=== PATIENT | female | born 1950 | race Caucasian/White ===

== ENCOUNTER 2018-03-05 05:59 | Inpatient (IN) ==
[2018-03-05] MEDS ORDERED: Thrombin Topical 20,000 UNIT Spray Kit TOPICAL ONE (06:36)
[2018-03-05] MEDS ORDERED: Heparin 10,000 UNITS/10 ML Vial (for IV use) ONE (06:36)
[2018-03-05] MEDS ORDERED: Protamine Sulfate Inj 50 MG/5 ML Vial ONE (06:36)
[2018-03-05] MEDS ORDERED: Heparin/NS PF Inj 500 ML ONE (06:36)
[2018-03-05] MEDS ORDERED: ceFAZolin 2 GM Premix Inj 0 GM/0 ML PIGGYBACK IV.SIG ONE (06:37)
--- NOTE | 2018-03-05 07:02 | P.PNVS ---
- Pre-operative Note Planned Procedure: ABF Interval History: Pt has been feeling well. No changes in health that would preclude surgery. Stopped smoking. Labs: Hct 38 plt 243 INR 1.0 cr 0.8 Blood: T&S Imaging: CTA reviewed Orders: NPO Ancef 1g IV OCTOR Post-operative Destination: [facility] Operative site marked: No Consent: Informed consent has been obtained from Christie Alan. I have explained the procedure in detail and discussed the risks, benefits, and potential complications. All questions have been answered. Patient Contact Information: Buster (s.o.) [phone]
[2018-03-05] MEDS ORDERED: Chlorhexidine Gluconate 2% 1 Pack (2 Cloths) TOPICAL ONE (07:10)
[2018-03-05] MEDS ORDERED: Metoprolol Tartrate 25 MG Tablet PO ONE (07:10)
[2018-03-05] MEDS ORDERED: Sodium Chlor 0.9% Inj 500 ML IV.SIG SCH (08:00)
[2018-03-05] MEDS ORDERED: Normosol-R pH 7.4 Inj 3,000 ML IV.CONT ONE (08:02)
[2018-03-05] MEDS ORDERED: Lidocaine PF 1% Inj 5 ML Syringe OTHER ONE (08:02)
[2018-03-05] MEDS ORDERED: Phenylephrine/NS 1000 MCG/10ML Syringe IV.PUSH ONE (08:02)
[2018-03-05] MEDS ORDERED: Sodium Chlor 0.9% Inj 500 ML IV.CONT ONE (08:02)
[2018-03-05] MEDS ORDERED: Glycopyrrolate Inj 1 MG/5 ML Syringe IV.PUSH ONE (08:02)
[2018-03-05] MEDS ORDERED: Sodium Chlor 0.9% Inj 250 ML IV.CONT ONE (08:02)
[2018-03-05] MEDS ORDERED: Neostigmine Inj 5 MG/5 ML Syringe IV.PUSH ONE (08:02)
[2018-03-05] MEDS ORDERED: ceFAZolin 1 GM Premix Inj 1 GM/50 ML FROZ.PIGGY IV.SIG ONE (08:18)
[2018-03-05] MEDS ORDERED: Bisacodyl 10 MG Supp RECTAL PRN (12:41)
--- NOTE | 2018-03-05 12:41 | P.OP ---
- Preoperative Diagnosis (1) Aortic occlusion - Postoperative Diagnosis (1) Aortic occlusion Date of procedure: 03/05/18 Procedure: 1. Aorto-bifemoral bypass (14x7 Dacron) 2. R PFA TEA and patch angioplasty (Bovine pericardium) 3. L PFA TEA and patch angioplasty (Bovine pericardium) 4. R SFA TEA and patch angioplasty (Bovine pericardium) Implants: Dacron Bovine pericardium x 3 Anesthesia: GETA Surgeon: Ran Reyes MD Screwdown Operator: Jose Eduardo Guthrie Screwdown Operator: Phylicia Tracey Estimated blood loss (mL): 450 IV fluids (mL): 3,000 Urine output (mL): 250 Pathology: none sent Operation and Findings: severe aortic calcific disease partial LEFT renal ischemia during proximal anastomosis good PT signals at end of case
[2018-03-05] MEDS ORDERED: Naloxone Inj 0.4 MG/ML Vial IV.PUSH PRN (12:46)
[2018-03-05] MEDS ORDERED: fentaNYL Citrate Inj 100 MCG/2 ML Ampul ONE (13:25)
[2018-03-05] MEDS ORDERED: Morphine Inj 4 MG/ML Vial ONE (13:25)
[2018-03-05] MEDS ORDERED: Sodium Chloride 0.9% 2 ML Flush PRN IV.FLUSH (13:48)
[2018-03-05] MEDS: Morphine Inj 30 MG/30 ML PCA.VIAL PCA PRN (13:56)
[2018-03-05 15:09] LABS: Baso % (Auto) 0.2 % (0.0-2.0); Eos % (Auto) 0.1 % (0.0-4.0); Hematocrit 26.2 % (35.0-46.0); Hemoglobin 8.9 gm/dL (11.6-15.3); Lymph # (Auto) 1.4 th/mm3 (1.0-4.8); Lymph % (Auto) 8.5 % (9.0-44.0); Mean Corpuscular Hemoglobin 36.4 pg (27.0-34.0); Mean Platelet Volume 7.6 fL (7.0-11.0); Mono # (Auto) 1.8 th/mm3 (0.0-0.9); Mono % (Auto) 11.1 % (0.0-8.0); Neut # (Auto) 13.3 th/mm3 (1.8-7.7); Neut % (Auto) 80.1 % (16.0-70.0); Platelet Count 177 th/mm3 (150-450); Red Blood Count 2.45 mil/mm3 (4.00-5.30); Red Cell Distribution Width 14.5 % (11.6-17.2); White Blood Count 16.6 th/mm3 (4.0-11.0)
[2018-03-05 15:16] LABS: Activated Partial Thrombo Time 25.9 sec (23.4-31.7); INR 1.1 Ratio; Prothrombin Time 11.5 sec (9.8-11.6)
[2018-03-05 15:37] LABS: Albumin 2.1 g/dL (3.4-5.0); Calcium 6.5 mg/dL (8.5-10.1); Carbon Dioxide 21.8 meq/L (21.0-32.0); Potassium 4.3 meq/L (3.5-5.1); Total Protein 4.6 g/dL (6.4-8.2); Troponin I 0.03 ng/mL (0.02-0.05)
--- NOTE | 2018-03-05 16:12 | P.CONCC ---
History of Present Illness Service: Critical care medicine Consult date: 03/05/18 Requesting Physician: Ran Reyes Reason for Consult: CRITICAL CARE Primary Care Provider: No Primary Care Physician Chief Complaint: Bilateral LE pain History of Present Illness: 67-year-old female with bilateral lower extremity rest pain secondary to aortoiliac occlusive disease status post aortobifem bypass grafting under general anesthesia, tolerated procedure well and was subsequently transferred to ICU following extubation on a morphine SEARCH ENGINE OPTIMIZATION ANALYST. Critical care consult was requested by Dr. Reyes. Following arrival to the ICU, patient developed hypotension and was ordered 2 units PRBCs by vascular surgery. She has been having significant pain despite SEARCH ENGINE OPTIMIZATION ANALYST. When I evaluated the patient she was drowsy though arousable on a morphine SEARCH ENGINE OPTIMIZATION ANALYST on nasal cannula. Her preop hemoglobin was 13.7 and postop hemoglobin 8.9. Review of Systems unobtainable due to mental status PMFSH - History History Provided By: Patient - Medical History Medical History: Medical History (Last Reviewed 03/05/18 @ 06:38 by Gina Matt) Anxiety and depression Brain aneurysm Cervical spine fracture Chronic neck and back pain Claudication Hx of cervical cancer Hx of hysterectomy Hx of skin malignancy Hyperlipidemia Hypertension Wears glasses - Surgical History Surgical History: Surgical History (Last Reviewed 03/05/18 @ 06:38 by Gina Matt) Hx of salpingo-oophorectomy, bilateral Hx of tonsillectomy - Tobacco History Second Hand Smoke Exposure: No Tobacco Use In Past 30 Days: Yes Smoking Status: Current every day smoker Tobacco Type: Cigarettes - Alcohol History How Often Do You Have a Drink Containing Alcohol: 4 or more times a week - Substance Use History Substance History: No History of Abuse - Travel History Recent Travel in the [place] Within the Last 8 Weeks: No Recent Travel Out of the Country Within the Last 8 Weeks: No Medications and Allergies Active Medications: Active Medications Al Hydroxide/Mg Hydroxide (Milk Of Magnesia Liq) 30 ml PO Q12H PRN PRN Reason: Mild Constipation Aspirin (Aspirin Chew) 81 mg PO DAILY DESTINY Atorvastatin Calcium (Lipitor) 40 mg PO HS DESTINY Bisacodyl (Dulcolax Supp) 10 mg RECTAL DAILY PRN PRN Reason: SEVERE CONSITIPATION Enoxaparin Sodium (Lovenox Inj) 30 mg SQ Q24H DESTINY Famotidine (Pepcid Pf Inj) 20 mg IV.PUSH Q12HR DESTINY Lactated Ringer's (Lr 1000 Ml Inj) 1,000 mls @ 30 mls/hr IV.SIG .Q24H DESTINY Stop: 03/06/18 07:14 Last Admin: 03/05/18 07:20 Dose: 30 mls/hr Lactated Ringer's (Lr 1000 Ml Inj) 1,000 mls @ 63 mls/hr IV.CONT .[id number] DESTINY Morphine Sulfate (Morphine Inj) 30 mg in 30 mls @ 0 mls/hr SEARCH ENGINE OPTIMIZATION ANALYST UNSCH PRN PRN Reason: per SEARCH ENGINE OPTIMIZATION ANALYST parameters Last Admin: 03/05/18 13:56 Dose: 0 mls/hr Lactulose (Lactulose Liq) 30 ml PO DAILY PRN PRN Reason: SEVERE CONSITIPATION Naloxone HCl (Narcan Inj) 0.4 mg IV.PUSH PRN PRN PRN Reason: Resp rate < 10 Phenytoin Sodium (Dilantin) 400 mg PO EVERY OTHER DAY [facility] Phenytoin Sodium (Dilantin) 300 mg PO EVERY OTHER DAY [facility] Sennosides (Senokot) 17.2 mg PO Q12H PRN PRN Reason: Moderate Constipation Sodium Chloride (Ns Flush) 2 ml IV.FLUSH BID DESTINY Sodium Chloride (Ns Flush) 2 ml IV.FLUSH PRN PRN PRN Reason: FLUSH AFTER USING IV ACCESS Allergies Allergy/AdvReac Type Severity Reaction Status Date / Time adhesive Allergy Severe Rash, Verified 03/05/18 06:38 Localized, BLISTERS, REDNESS Home Medications Medication Instructions Recorded Confirmed Type lisinopril 40 mg PO DAILY 11/07/17 03/05/18 History phenytoin sodium extended 300 mg PO EVERY OTHER DAY 01/10/18 03/05/18 History [Dilantin Extended] aspirin [Adult Low Dose Aspirin] 81 mg PO DAILY 03/01/18 03/05/18 History phenytoin sodium extended 400 mg PO EVERY OTHER DAY 03/01/18 03/05/18 History rosuvastatin 20 mg PO DAILY 03/01/18 03/05/18 History Physical Exam Vital signs: Vital Signs 03/05/18 06:54 03/05/18 13:27 03/05/18 13:58 Temperature 98.9 F 97.4 F L Pulse Rate 89 71 Respiratory Rate 20 14 Blood Pressure 161/73 H 100/48 L Pulse Oximetry 100 99 99 03/05/18 15:32 Temperature 97.4 F L Pulse Rate 75 Respiratory Rate 16 Blood Pressure 105/54 L Pulse Oximetry 99 Intake & Output 03/04/18 03/05/18 03/05/18 18:59 06:59 18:59 Intake Total 3050 / 3050 Output Total 700 / 700 Balance 2350 / 2350 Weight 43.8 kg Intake: IV 50 / 50 Ancef 1 GM Premix Inj 1 gm In 50 / 50 50 ml @ 0 mls/hr IV.SIG .STK- [facility] Rx#:[id number] Anesthesia Amount 3000 / 3000 Intake (Blood Product) Amt 0 / 0 Rbc As-3 Leukoreduced Unit 0 / 0 [id number] Output: Estimated Blood Loss 450 / 450 Urine Amount (Catheter) 250 / 250 Indwelling Urethral Catheter 250 / 250 Other: Weight On Admission 43.8 kg Narrative: HEENT/Neuro: No icterus, tongue moist, BALDEMAR, Awake alert oriented 3, nonfocal grossly, moving all 4 extremities Neck: No JVD Chest/pulmonary: CTA bilaterally Cardiovascular: S1-S2 regular no gallop or murmur GI/abdomen: Soft, nontender, bowel sounds sluggish, abdominal binder in place Extremities: Incision site in bilateral groins with wound vac, warm bilaterally , appears well perfused distally, no edema - Urinary Catheter Management Indwelling Urethral Catheter Cath placed during this visit: yes Reason for continuing: Hourly intake/output Insertion date: 03/05/18 Insertion time: 08:15 Assessment and Plan - Assessment and Plan Plan: 67-year-old female with: Aortoiliac disease status post aortobifemoral bypass postop day 0 Acute blood loss anemia Hypotension History of brain aneurysm surgery Plan: Admitted to ICU Follow neuro status. Continue phenytoin sodium home dose Morphine SEARCH ENGINE OPTIMIZATION ANALYST for pain control. IV hydration, watch for hypotension Continue aspirin/statin Being followed by vascular surgery for aortobifem bypass. 2 units PRBCs ordered per vascular surgery. Follow CBC. Transfuse to keep hemoglobin above 8 g% Strict intake output, monitor and replete electrodes, follow BUN/creatinine Advance p.o. diet when okay with vascular surgery Watch for hyperglycemia, SSI for glycemic control if needed GI prophylaxis Pepcid/DVT prophylaxis with Lovenox when okay with vascular surgery. Critical care will continue to follow as needed. Discussed with Dr. Reyes, discussed with ICU nursing staff.
[2018-03-05] MEDS: Enoxaparin Inj 30 MG/0.3 ML Syringe SQ SCH (17:48)
--- NOTE | 2018-03-05 19:40 | MP ---
cc: Ran Reyes MD DATE OF OPERATION: 03/05/2018 PREOPERATIVE DIAGNOSIS: Infrarenal aortic occlusion. POSTOPERATIVE DIAGNOSIS: Infrarenal aortic occlusion. PROCEDURES: 1. Aortobifemoral bypass graft. 2. Right profunda endarterectomy and patch angioplasty with bovine pericardial patch. 3. Left profunda endarterectomy and patch angioplasty with a bovine pericardial patch. 4. Right superficial femoral artery endarterectomy patch angioplasty with a bovine pericardial patch. ATTENDING SURGEON: Ran Reyes MD ASSISTANTS: Jose Eduardo Guthrie MD; KENDRA Donahue, PA/Raw Juice Weigher. INDICATIONS: Ms. Alan is a 67-year-old lady with early rest pain. She has a terminal aortic occlusion, was taken to the operating room for an aortic reconstruction. Intraoperatively, it was found that she had significant occlusive disease of profundas, and these were both reconstructed, and then immediately after unclamping the graft, there was no signal in the right foot, and Doppler interrogation revealed her SFA was occluded. After completion of all the repairs, she had Doppler signals in both feet. DESCRIPTION OF PROCEDURE: Informed consent was obtained from the patient. She was taken to the operating room and placed supine on the operating table. An appropriate timeout was taken to ensure the patient's identity, operative site, and planned procedure. The administration of 1 g of Ancef was administered prior to skin incision and will be discontinued after single preoperative dose. Everyone in the room agreed with timeout, and we proceeded. She was prepped from her chin to her toes. Vertical incision was made in the patient's both groins, carried down through subcutaneous tissue with electrocautery. The common femoral, distal external iliac artery, and both profunda and SFA were all dissected free and encircled with vessel loops. An abdominal incision was made going from the xiphoid to below the umbilicus, carried down through subcutaneous tissue with electrocautery. The fascia was divided with electrocautery, and the peritoneum was sharply entered. Abdominal contents were explored, and there was no untoward pathology identified. The nasogastric tube was confirmed to be in a good location. The Bookwalter retractor was set up. The bowels were retracted to the right ligament. 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 We dissected this down dissected the aorta up cephalad to a point it was reasonable to clamp it. A tunnel was then created between the groin incisions and the abdominal aorta, and DeBakey aortic clamps were placed in these tunnels. The patient was systemically heparinized throughout the case and the ACT was kept greater than 250. Proximal and distal control of the infrarenal aorta obtained with a Carlos and an aortic clamp, and a longitudinal aortotomy was made with an 11-blade, extended with Ulm scissors. A 14 x 7 graft was brought up onto the field, spatulated, and sewn end-to-side with running 3-0 Prolene suture. The accessory renal artery was controlled with vessel loops. The solution was flushed and noted to be hemostatic with several repair sutures, a pledgeted suture for the very calcified aorta. Nereida soft jaw clamps were placed on both limbs, and the limbs were passed in their anatomic location to the groins, taking caution not to twist it. The bowel contents were then returned to their normal intraperitoneal location. The external iliac artery of the right profunda and common femoral and proximal superficial femoral artery were clamped with profunda clamps, and a longitudinal arteriotomy was made from the common femoral artery extending down to the profunda. The profunda was endarterectomized without difficulty, and a bovine pericardial patch was sewn on using running 5-0 Prolene suture. The patch was then incised with an 11 blade, and this was extended with Ulm scissors, and the ABF limb was cut to appropriate length, spatulated, and sewn end-to-side with running 5-0 Prolene suture. At the completion, it was flushed and noted to be hemostatic. There was a nice Doppler signal in the profunda. The SFA still did not have a good Doppler signal nor did the foot nor popliteal, and as such, with incision was extended caudally slightly, and the SFA was clamped proximally and distally, and a longitudinal arteriotomy was made with an 11 blade and extended with Dietriech scissors. The SFA was endarterectomized with a reasonable endpoint proximally and distally, and a bovine pericardial patch was sewn in with running 6-0 Prolene suture. At the completion, all the clamps were released. There was an excellent multiphasic Doppler signal in the right profunda, right SFA, and in the right posterior tibial. The left external iliac artery was then clamped as well as the profunda and SFA, and a longitudinal arteriotomy was made extending from the common femoral artery down to the profunda femoris, and the artery was endarterectomized without difficulty, and a bovine pericardial patch was sewn on with a running 5-0 Prolene suture. The middle of the patch was incised with an 11 blade. This incision was extended with Ulm scissors, and the left ABF limb was cut to an appropriate length, spatulated, and sewn end-to-side with running 5-0 Prolene suture. At the completion, it was flushed and noted to be hemostatic. There were nice signals in both feet. Heparin was reversed with protamine. The wounds were all made hemostatic. The aorta was re-retroperitonealized with running 2-0 Polysorb suture, and the abdominal cavity was closed with #1 looped PDS, 2-0 Polysorb, and 4-0 Monocryl. The groins were closed in 4 layers with 2 layers of 2-0 Polysorb, 3-0 Polysorb, and 4-0 Monocryl. The sponge and needle counts were correct at the end of the case. I was present, scrubbed, and performed the entire procedure. Ran Reyes MD RJF/rm/do , 05:56 PM , 06:07 PM [email or web address]
[2018-03-05] MEDS: Sodium Chloride 0.9% 2 ML Flush BID IV.FLUSH SCH (20:50)
[2018-03-05] MEDS: Famotidine PF Inj 20 MG/2 ML Vial IV.PUSH SCH (20:50)
[2018-03-06 05:37] LABS: Hematocrit 34.5 % (35.0-46.0); Hemoglobin 12.1 gm/dL (11.6-15.3); Mean Corpuscular Hemoglobin 34.4 pg (27.0-34.0); Mean Corpuscular Volume 98.3 fL (80.0-100.0); Mean Platelet Volume 8.4 fL (7.0-11.0); Platelet Count 141 th/mm3 (150-450); Red Blood Count 3.51 mil/mm3 (4.00-5.30); Red Cell Distribution Width 18.6 % (11.6-17.2)
[2018-03-06 06:02] LABS: Anion Gap 8 meq/L (5-15); Blood Urea Nitrogen 10 mg/dL (7-18); Carbon Dioxide 24.7 meq/L (21.0-32.0); Chloride 107 meq/L (98-107); Glomerular Filtration Rate Greater Than 89 mL/min (>89); Glucose,Random 134 mg/dL (74-106); Potassium 4.5 meq/L (3.5-5.1); Sodium 140 meq/L (136-145)
[2018-03-06 06:15] LABS: Total Protein 5.2 g/dL (6.4-8.2)
--- NOTE | 2018-03-06 07:27 | P.PNVS ---
Subjective Post Op Day #: 1 Procedure: ABF with B groin reconstructions Subjective/Hospital Course: pt doing well, initially post-op hypovolemic, but improved BP with IVF bolus and 2U PRBC stable overnight pain reasonably controlled Pt very thirsty UOP decent Objective Neuro: alert, no distress CLEMENTS Pulmonary: NC O2, good sats, no SOB Cardiac: SR, bp ok after resuscitation FEN/GI: NGT with scant output e'lytes ok - cr 0.6 UOP 650/12h ID Antibiotics (date/duration): none Heme: Hct 34 after 2U PRBC plt 141 Vascular: palpable DP bilaterally Laboratory Results - last 24 hr 03/05/18 03/05/18 03/05/18 04:13 07:54 14:45 WBC 16.6 H RBC 2.45 L Hgb 8.9 L Hct 26.2 L MCV 107.0 H MCH 36.4 H MCHC 34.0 RDW 14.5 Plt Count 177 MPV 7.6 Neut % (Auto) 80.1 H Lymph % (Auto) 8.5 L [place] % (Auto) 11.1 H Eos % (Auto) 0.1 Baso % (Auto) 0.2 Neut # (Auto) 13.3 H Lymph # (Auto) 1.4 [place] # (Auto) 1.8 H Eos # (Auto) 0.0 Baso # (Auto) 0.0 WBC Differential . Differential Comment Auto diff final PT INR APTT Fibrinogen Sodium Potassium Chloride Carbon Dioxide Anion Gap BUN Creatinine Estimated GFR Random Glucose Lactic Acid Calcium Prot Corrected Calcium Total Bilirubin AST ALT Alkaline Phosphatase Troponin I Total Protein Albumin Blood Type B Positive Blood Type Recheck Required Antibody Screen Negative MTS Gel Crossmatch See Detail 03/05/18 03/05/18 03/05/18 14:45 14:45 14:45 WBC RBC Hgb Hct MCV MCH MCHC RDW Plt Count MPV Neut % (Auto) Lymph % (Auto) [place] % (Auto) Eos % (Auto) Baso % (Auto) Neut # (Auto) Lymph # (Auto) [place] # (Auto) Eos # (Auto) Baso # (Auto) WBC Differential Differential Comment PT 11.5 INR 1.1 APTT Cancelled 25.9 Fibrinogen 169 L Sodium 139 Potassium 4.3 Chloride 104 Carbon Dioxide 21.8 Anion Gap 13 BUN 13 Creatinine 0.91 Estimated GFR 62 L Random Glucose 179 H Lactic Acid Calcium 6.5 L* Prot Corrected Calcium 7.8 L Total Bilirubin 0.3 AST 29 ALT 30 Alkaline Phosphatase 99 Troponin I 0.03 Total Protein 4.6 L Albumin 2.1 L Blood Type Blood Type Recheck Antibody Screen MTS Gel Crossmatch 03/05/18 03/05/18 03/06/18 14:45 15:00 01:24 WBC RBC Hgb Hct MCV MCH MCHC RDW Plt Count MPV Neut % (Auto) Lymph % (Auto) [place] % (Auto) Eos % (Auto) Baso % (Auto) Neut # (Auto) Lymph # (Auto) [place] # (Auto) Eos # (Auto) Baso # (Auto) WBC Differential Differential Comment PT INR APTT Fibrinogen Sodium Potassium Chloride Carbon Dioxide Anion Gap BUN Creatinine Estimated GFR Random Glucose Lactic Acid 3.3 H 3.3 H Calcium Prot Corrected Calcium Total Bilirubin AST ALT Alkaline Phosphatase Troponin I Total Protein Albumin Blood Type Blood Type Recheck Antibody Screen MTS Gel Crossmatch See Detail 03/06/18 03/06/18 05:18 05:18 WBC 12.0 H RBC 3.51 L Hgb 12.1 D Hct 34.5 L MCV 98.3 D MCH 34.4 H MCHC 35.0 RDW 18.6 H D Plt Count 141 L MPV 8.4 Neut % (Auto) Lymph % (Auto) [place] % (Auto) Eos % (Auto) Baso % (Auto) Neut # (Auto) Lymph # (Auto) [place] # (Auto) Eos # (Auto) Baso # (Auto) WBC Differential Differential Comment PT INR APTT Fibrinogen Sodium 140 Potassium 4.5 Chloride 107 Carbon Dioxide 24.7 Anion Gap 8 BUN 10 Creatinine 0.62 Estimated GFR Greater than 89 Random Glucose 134 H Lactic Acid Calcium 7.0 L* Prot Corrected Calcium 8.0 L Total Bilirubin AST ALT Alkaline Phosphatase Troponin I Total Protein 5.2 L D Albumin Blood Type Blood Type Recheck Antibody Screen MTS Gel Crossmatch Assessment and Plan - Assessment (1) Aortic occlusion Code(s): I74.10 - Embolism and thrombosis of unspecified parts of aorta Status : Acute - Plan POD#1 s/p ABF with bilateral groin reconstructions palpable pulses 1. Still fluid avid. Continue MIVF 2. Ok to have water while NGT in place 3. Likely d/c NGT this afternoon vs tomorrow 4. OOB TC 5. Bailey in today for adequate UOP monitoring 6. Ok to lateral transfer to [facility] today Discharge Plannin-7 days
[2018-03-06] MEDS: Phenytoin Sodium 100 MG Capsule PO SCH (09:18)
[2018-03-06] MEDS: Famotidine PF Inj 20 MG/2 ML Vial IV.PUSH SCH ×2 (09:19→20:04)
[2018-03-06] MEDS: Sodium Chloride 0.9% 2 ML Flush BID IV.FLUSH SCH ×2 (09:20→20:05)
[2018-03-06] MEDS: Morphine Inj 30 MG/30 ML PCA.VIAL PCA PRN (11:39)
[2018-03-06] MEDS: Enoxaparin Inj 30 MG/0.3 ML Syringe SQ SCH (12:39)
--- NOTE | 2018-03-06 20:02 | P.PNCC ---
Subjective Subjective Remarks/Hospital Course: Hospital Course: 67-year-old female with bilateral lower extremity rest pain secondary to aortoiliac occlusive disease status post aortobifem bypass grafting under general anesthesia, tolerated procedure well and was subsequently transferred to ICU following extubation on a morphine SECOND BUTLER. Critical care consult was requested by Dr. Reyes. Following arrival to the ICU, patient developed hypotension and was ordered 2 units PRBCs by vascular surgery. She has been having significant pain despite SECOND BUTLER. When I evaluated the patient she was drowsy though arousable on a morphine SECOND BUTLER on nasal cannula. Her preop hemoglobin was 13.7 and postop hemoglobin 8.9. Subjective: 03/06: doing well. denies complaints. states she doesn't feel hungry at all. Objective Vital Signs / I&O: Vital Signs 03/05/18 21:05 03/05/18 21:06 03/05/18 23:00 Temperature 36.6 C 36.8 C Pulse Rate 82 81 Respiratory Rate 16 14 Blood Pressure 145/73 H 95/57 L Pulse Oximetry 97 97 98 03/06/18 03:00 03/06/18 07:00 03/06/18 10:12 Temperature 37.1 C Pulse Rate 91 H 98 H 99 H Respiratory Rate 15 15 38 H Blood Pressure 149/74 H 144/71 H Pulse Oximetry 98 96 03/06/18 10:25 03/06/18 11:00 03/06/18 15:00 Temperature 37.1 C 37.1 C Pulse Rate 102 H 95 H 93 H Respiratory Rate 40 H 37 H Blood Pressure 128/60 Pulse Oximetry 93 L 95 Intake & Output 03/06/18 03/06/18 03/07/18 06:59 18:59 06:59 Intake Total 1450 / 1450 2048 / 2048 Output Total 680 / 680 425 / 425 Balance 770 / 770 1623 / 1623 Weight 49 kg Intake: IV 1000 / 1000 2000 / 2000 LR 1000 mL Inj 1,000 ML @ 63 1000 / 1000 1000 / 1000 mls/hr IV.CONT .[id number] [facility] Rx# :[id number] LR 1000 mL Inj 1,000 ML @ 30 1000 / 1000 mls/hr IV.SIG .Q24H DESTINY Rx#: [id number] Oral 50 / 50 48 / 48 Intake (Blood Product) Amt 400 / 400 Rbc As-3 Leukoreduced Unit 400 / 400 [id number] Output: Urine Amount (Catheter) 650 / 650 425 / 425 Indwelling Urethral Catheter 650 / 650 425 / 425 Gastric Drainage Nasogastric Tube Result Diagrams: 03/06/18 05:18 03/06/18 05:18 Objective Remarks: Gen: middle-aged female, lying in bed, no acute distress. HEENT: nc. at. perrl. mmm. Neck: No JVD. trachea midline. Chest/pulmonary: CTA bilaterally. equal chest rise. unlabored. Cardiovascular:normal rate, regular rhythm. sinus. GI/abdomen: Soft, appropriately tender to palpation diffusely. abdominal binder in place. bilateral groin sites with vac dressings. c/d/i. Extremities: well perfused. no edema. distal pulses 2+. Neuro: RASS 0. CAM - . GCS 15. follows commands. no focal deficits. Assessment and Plan - Assessment and Plan Plan: 67-year-old female with: Aortoiliac disease status post aortobifemoral bypass postop day 1 Acute blood loss anemia Hypotension- resolved History of brain aneurysm surgery Acute post-operative abdominal pain Plan: remain in ICU continue mivf ileus anticipated. 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 Strict intake output, monitor and replete electrodes, follow BUN/creatinine Pepcid/DVT prophylaxis with Lovenox when okay with vascular surgery. SCDs Critical care will continue to follow while patient remains in the ICU.
[2018-03-07] MEDS: Morphine Inj 30 MG/30 ML PCA.VIAL PCA PRN ×2 (01:29→16:51)
[2018-03-07 03:54] LABS: Hematocrit 31.5 % (35.0-46.0); Hemoglobin 10.6 gm/dL (11.6-15.3); Mean Corpuscular HGB Conc 33.8 % (32.0-36.0); Mean Corpuscular Hemoglobin 34.1 pg (27.0-34.0); Mean Corpuscular Volume 100.8 fL (80.0-100.0); Mean Platelet Volume 7.6 fL (7.0-11.0); Platelet Count 134 th/mm3 (150-450); Red Blood Count 3.12 mil/mm3 (4.00-5.30); Red Cell Distribution Width 17.8 % (11.6-17.2); White Blood Count 13.9 th/mm3 (4.0-11.0)
[2018-03-07 04:21] LABS: Anion Gap 8 meq/L (5-15); Blood Urea Nitrogen 13 mg/dL (7-18); Calcium 7.9 mg/dL (8.5-10.1); Carbon Dioxide 26.7 meq/L (21.0-32.0); Chloride 105 meq/L (98-107); Glomerular Filtration Rate Greater Than 89 mL/min (>89); Glucose,Random 110 mg/dL (74-106); Potassium 4.2 meq/L (3.5-5.1); Sodium 140 meq/L (136-145)
[2018-03-07] MEDS: Famotidine PF Inj 20 MG/2 ML Vial IV.PUSH SCH ×2 (08:40→20:37)
[2018-03-07] MEDS: Phenytoin Sodium 100 MG Capsule PO SCH (08:40)
[2018-03-07] MEDS: Sodium Chloride 0.9% 2 ML Flush BID IV.FLUSH SCH ×2 (08:41→20:37)
--- NOTE | 2018-03-07 10:25 | P.PNVS ---
Subjective Post Op Day #: 2 Procedure: ABF with B groin reconstructions Subjective/Hospital Course: looks good Does c/o abdominal incisional soreness feet warm no flatus but nonbilious out of NGT Objective Neuro: alert, no distress, CLEMENTS Pulmonary: good sats, no SOB Cardiac: reg rate, bp ok FEN/GI: NGT 150mL nonbilious UOP good e'lytes ok ID Antibiotics (date/duration): none Heme: stable Vascular: palpable DP bilaterally B groin vacs in place Abdominal incision ok Laboratory Results - last 24 hr 03/07/18 03/07/18 03:20 03:20 WBC 13.9 H RBC 3.12 L Hgb 10.6 L Hct 31.5 L MCV 100.8 H MCH 34.1 H MCHC 33.8 RDW 17.8 H Plt Count 134 L MPV 7.6 Sodium 140 Potassium 4.2 Chloride 105 Carbon Dioxide 26.7 Anion Gap 8 BUN 13 Creatinine 0.61 Estimated GFR Greater than 89 Random Glucose 110 H Calcium 7.9 L D Assessment and Plan - Assessment (1) Aortic occlusion Code(s): I74.10 - Embolism and thrombosis of unspecified parts of aorta Status : Acute - Plan POD#2 s/p ABF with bilateral groin reconstructions palpable pulses 1. D/C NGT, keep NPO for today; may have ice chips 2. D/C Abiley 3. OOB and ambulate 4. Likely to [facility] tomorrow (POD#3) 5. AROBF 6. Reg meds 7. 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
[2018-03-07] MEDS: Enoxaparin Inj 30 MG/0.3 ML Syringe SQ SCH (12:51)
--- NOTE | 2018-03-07 15:02 | P.PNCC ---
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 Critical care consult was requested by Dr. Reyes. Following arrival to the ICU, patient developed hypotension and was ordered 2 units PRBCs by vascular surgery. She has been having significant pain despite CRIMINAL JUDGE. When I evaluated the patient she was drowsy though arousable on a morphine CRIMINAL JUDGE on nasal cannula. Her preop hemoglobin was 13.7 and postop hemoglobin 8.9. Subjective: 03/06: doing well. denies complaints. states she doesn't feel hungry at all. 03/07: Resting in bed comfortably. Not in any acute distress. Complains of pain with coughing in her abdomen. Denies any pain in bilateral lower extremities currently. Objective Vital Signs / I&O: Vital Signs 03/06/18 15:00 03/06/18 19:00 03/06/18 20:00 Temperature 98.7 F 98.8 F Pulse Rate 93 H 91 H 94 H Respiratory Rate 25 H 18 Blood Pressure 144/67 H 146/65 H Pulse Oximetry 99 97 03/06/18 21:00 03/06/18 22:00 03/06/18 23:00 Temperature Pulse Rate 98 H 104 H 92 H Respiratory Rate 32 H 18 20 Blood Pressure 150/65 H 161/70 H 121/57 L Pulse Oximetry 95 97 97 03/07/18 00:00 03/07/18 01:00 03/07/18 02:00 Temperature 98.7 F Pulse Rate 92 H 114 H 116 H Respiratory Rate 19 16 24 Blood Pressure 154/92 H 159/74 H 150/69 H Pulse Oximetry 97 96 95 03/07/18 03:00 03/07/18 04:00 03/07/18 05:00 Temperature Pulse Rate 102 H 100 H 94 H Respiratory Rate 22 33 H 31 H Blood Pressure 120/56 L 133/63 128/63 Pulse Oximetry 99 96 97 03/07/18 06:00 03/07/18 06:42 03/07/18 07:00 Temperature 98.9 F Pulse Rate 101 H 99 H Respiratory Rate 38 H 20 29 H Blood Pressure 128/93 H 131/87 Pulse Oximetry 98 98 03/07/18 08:00 03/07/18 09:00 03/07/18 09:21 Temperature 98.4 F Pulse Rate 109 H 115 H 103 H Respiratory Rate 44 H 35 H 37 H Blood Pressure 159/89 H 170/106 H 169/60 H Pulse Oximetry 98 100 99 03/07/18 10:00 03/07/18 11:00 03/07/18 12:00 Temperature 98.1 F 98.4 F 98.0 F Pulse Rate 96 H 104 H 97 H Respiratory Rate 31 H 27 H 26 H Blood Pressure 141/63 H 142/66 H 144/65 H Pulse Oximetry 98 96 98 03/07/18 12:43 03/07/18 13:00 Temperature 98.0 F Pulse Rate 114 H 113 H Respiratory Rate 46 H 42 H Blood Pressure 168/79 H 174/84 H Pulse Oximetry 93 L 92 L Intake & Output 03/06/18 03/07/18 03/07/18 18:59 06:59 18:59 Intake Total 2048 / 2048 1000 / 1000 Output Total 425 / 425 900 / 900 Balance 1623 / 1623 -900 / -900 1000 / 1000 Weight 53.5 kg Intake: IV 2000 / 2000 1000 / 1000 LR 1000 mL Inj 1,000 ML @ 63 1000 / 1000 1000 / 1000 mls/hr IV.CONT .[id number] [facility] Rx# :[id number] LR 1000 mL Inj 1,000 ML @ 30 1000 / 1000 mls/hr IV.SIG .Q24H [facility] Rx#: [id number] Oral 48 / 48 Output: Urine Amount (Catheter) 425 / 425 750 / 750 Indwelling Urethral Catheter 425 / 425 750 / 750 Gastric Drainage 150 / 150 Nasogastric Tube 150 / 150 Result Diagrams: 03/07/18 03:20 03/07/18 03:20 Objective Remarks: Gen: middle-aged female, lying in bed, no acute distress. HEENT: nc. at. perrl. mmm. Neck: No JVD. trachea midline. Chest/pulmonary: CTA bilaterally. equal chest rise. unlabored. Cardiovascular:normal rate, regular rhythm. sinus. GI/abdomen: Soft, appropriately tender to palpation diffusely. abdominal binder in place. bilateral groin sites with vac dressings. c/d/i. Extremities: well perfused. no edema. distal pulses 2+. Neuro: RASS 0. CAM - . GCS 15. follows commands. no focal deficits. Assessment and Plan - Assessment and Plan Plan: 67-year-old female with: Aortoiliac disease status post aortobifemoral bypass postop day 1 Acute blood loss anemia Hypotension- resolved History of brain aneurysm surgery Acute post-operative abdominal pain Plan: remain in ICU continue mivf ileus anticipated. keep npo with sips of water for comfort keep NGT to LIWS Discontinue Bailey catheter if okay with vascular. 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 Strict intake output, monitor and replete electrodes, follow BUN/creatinine Pepcid/DVT prophylaxis with Lovenox when okay with vascular surgery. SCDs Transfer out of ICU when okay with vascular.
[2018-03-08 05:12] LABS: Hematocrit 32.2 % (35.0-46.0); Hemoglobin 10.8 gm/dL (11.6-15.3); Mean Corpuscular HGB Conc 33.5 % (32.0-36.0); Mean Corpuscular Hemoglobin 34.4 pg (27.0-34.0); Mean Corpuscular Volume 102.4 fL (80.0-100.0); Mean Platelet Volume 7.9 fL (7.0-11.0); Platelet Count 143 th/mm3 (150-450); Red Blood Count 3.15 mil/mm3 (4.00-5.30); Red Cell Distribution Width 16.8 % (11.6-17.2); White Blood Count 11.2 th/mm3 (4.0-11.0)
[2018-03-08 05:41] LABS: Anion Gap 8 meq/L (5-15); Blood Urea Nitrogen 12 mg/dL (7-18); Calcium 8.3 mg/dL (8.5-10.1); Carbon Dioxide 27.1 meq/L (21.0-32.0); Chloride 100 meq/L (98-107); Glomerular Filtration Rate Greater Than 89 mL/min (>89); Glucose,Random 75 mg/dL (74-106); Potassium 3.9 meq/L (3.5-5.1); Sodium 135 meq/L (136-145)
[2018-03-08] MEDS: Morphine Inj 30 MG/30 ML PCA.VIAL PCA PRN (07:33)
[2018-03-08] MEDS ORDERED: Morphine Sulfate Inj 2 MG/ML Vial IV.PUSH PRN (08:32)
--- NOTE | 2018-03-08 08:32 | P.PNVS ---
Subjective Post Op Day #: 3 Procedure: ABF with B groin reconstructions Subjective/Hospital Course: looks great pain controlled no nausea + UOP since Hussein out Objective Vital Signs / I&O: Vital Signs 03/07/18 09:00 03/07/18 09:21 03/07/18 10:00 Temperature 98.4 F 98.1 F Pulse Rate 115 H 103 H 96 H Respiratory Rate 35 H 37 H 31 H Blood Pressure 170/106 H 169/60 H 141/63 H Pulse Oximetry 100 99 98 03/07/18 11:00 03/07/18 12:00 03/07/18 12:43 Temperature 98.4 F 98.0 F Pulse Rate 106 H 97 H 114 H Respiratory Rate 27 H 26 H 46 H Blood Pressure 142/66 H 144/65 H 168/79 H Pulse Oximetry 96 98 93 L 03/07/18 13:00 03/07/18 14:00 03/07/18 15:00 Temperature 98.0 F Pulse Rate 113 H 98 H 102 H Respiratory Rate 42 H 26 H 34 H Blood Pressure 174/84 H 142/63 H 152/117 H Pulse Oximetry 92 L 96 98 03/07/18 15:03 03/07/18 16:00 03/07/18 17:00 Temperature Pulse Rate 105 H 104 H 102 H Respiratory Rate 37 H 34 H 40 H Blood Pressure 155/72 H 156/67 H 144/65 H Pulse Oximetry 98 98 97 03/07/18 18:00 03/07/18 19:00 03/07/18 20:00 Temperature 98.6 F Pulse Rate 94 H 99 H 96 H Respiratory Rate 20 25 H 31 H Blood Pressure 135/62 156/70 H 135/63 Pulse Oximetry 98 97 97 03/07/18 21:00 03/07/18 22:00 03/07/18 23:00 Temperature Pulse Rate 109 H 98 H 92 H Respiratory Rate 40 H 25 H 34 H Blood Pressure 170/73 H 129/60 129/59 L Pulse Oximetry 98 97 97 03/08/18 00:00 03/08/18 01:00 03/08/18 02:00 Temperature Pulse Rate 101 H 92 H 87 Respiratory Rate 27 H 22 23 Blood Pressure 134/62 128/62 118/60 Pulse Oximetry 95 98 98 03/08/18 03:00 Temperature Pulse Rate 102 H Respiratory Rate 26 H Blood Pressure 118/67 Pulse Oximetry 91 L Intake & Output 03/07/18 03/08/18 03/08/18 18:59 06:59 18:59 Intake Total 2250 / 2250 720 / 720 Output Total 450 / 450 0 / 0 Balance 1800 / 1800 720 / 720 Weight 55.9 kg Intake: IV 1000 / 1000 LR 1000 mL Inj 1,000 ML @ 63 1000 / 1000 mls/hr IV.CONT .[id number] [facility] Rx# :[id number] Oral 1250 / 1250 720 / 720 Output: Urine Amount (Catheter) 350 / 350 0 / 0 Female External 0 / 0 0 / 0 Indwelling Urethral Catheter 350 / 350 Gastric Drainage 100 / 100 Nasogastric Tube 100 / 100 Other: # Bowel Movements 0 0 Exam: resting comfortably, Prevenas in place B Abdominal incision ok palpable DP bilaterally Laboratory Results - last 24 hr 03/05/18 03/08/18 03/08/18 15:00 04:06 04:06 WBC 11.2 H RBC 3.15 L Hgb 10.8 L Hct 32.2 L MCV 102.4 H MCH 34.4 H MCHC 33.5 RDW 16.8 Plt Count 143 L MPV 7.9 Sodium 135 L Potassium 3.9 Chloride 100 Carbon Dioxide 27.1 Anion Gap 8 BUN 12 Creatinine 0.51 Estimated GFR Greater than 89 Random Glucose 75 Calcium 8.3 L MTS Gel Crossmatch See Detail Assessment and Plan - Assessment (1) Aortic occlusion Code(s): I74.10 - Embolism and thrombosis of unspecified parts of aorta Status : Acute - Plan POD#3 s/p ABF with bilateral groin reconstructions palpable pulses 1. clear liq diet and ADAT 2. 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 OOB/PT 5. Transfer to [facility] Discharge Plannin-3 days pending mobility, pain control and resumption of diet
--- NOTE | 2018-03-08 08:47 | P.PNCC ---
Subjective Subjective Remarks/Hospital Course: Hospital Course: 67-year-old female with bilateral lower extremity rest pain secondary to aortoiliac occlusive disease status post aortobifem bypass grafting under general anesthesia, tolerated procedure well and was subsequently transferred to ICU following extubation on a morphine COLD MEAT CHEF. Critical care consult was requested by Dr. Reyes. Following arrival to the ICU, patient developed hypotension and was ordered 2 units PRBCs by vascular surgery. She has been having significant pain despite COLD MEAT CHEF. When I evaluated the patient she was drowsy though arousable on a morphine COLD MEAT CHEF on nasal cannula. Her preop hemoglobin was 13.7 and postop hemoglobin 8.9. Subjective: 03/06: doing well. denies complaints. states she doesn't feel hungry at all. 03/07: Resting in bed comfortably. Not in any acute distress. Complains of pain with coughing in her abdomen. Denies any pain in bilateral lower extremities currently. 03/08: Resting in bed comfortably. Denies any nausea. Tolerating water. Denies any shortness of breath. Objective Vital Signs / I&O: Vital Signs 03/07/18 09:00 03/07/18 09:21 03/07/18 10:00 Temperature 98.4 F 98.1 F Pulse Rate 115 H 103 H 96 H Respiratory Rate 35 H 37 H 31 H Blood Pressure 170/106 H 169/60 H 141/63 H Pulse Oximetry 100 99 98 03/07/18 11:00 03/07/18 12:00 03/07/18 12:43 Temperature 98.4 F 98.0 F Pulse Rate 106 H 97 H 114 H Respiratory Rate 27 H 26 H 46 H Blood Pressure 142/66 H 144/65 H 168/79 H Pulse Oximetry 96 98 93 L 03/07/18 13:00 03/07/18 14:00 03/07/18 15:00 Temperature 98.0 F Pulse Rate 113 H 98 H 102 H Respiratory Rate 42 H 26 H 34 H Blood Pressure 174/84 H 142/63 H 152/117 H Pulse Oximetry 92 L 96 98 03/07/18 15:03 03/07/18 16:00 03/07/18 17:00 Temperature Pulse Rate 105 H 104 H 102 H Respiratory Rate 37 H 34 H 40 H Blood Pressure 155/72 H 156/67 H 144/65 H Pulse Oximetry 98 98 97 03/07/18 18:00 11/08/18 19:00 03/07/18 20:00 Temperature 98.6 F Pulse Rate 94 H 99 H 96 H Respiratory Rate 20 25 H 31 H Blood Pressure 135/62 156/70 H 135/63 Pulse Oximetry 98 97 97 03/07/18 21:00 03/07/18 22:00 03/07/18 23:00 Temperature Pulse Rate 109 H 98 H 92 H Respiratory Rate 40 H 25 H 34 H Blood Pressure 170/73 H 129/60 129/59 L Pulse Oximetry 98 97 97 03/08/18 00:00 03/08/18 01:00 03/08/18 02:00 Temperature Pulse Rate 101 H 92 H 87 Respiratory Rate 27 H 22 23 Blood Pressure 134/62 128/62 118/60 Pulse Oximetry 95 98 98 03/08/18 03:00 Temperature Pulse Rate 102 H Respiratory Rate 26 H Blood Pressure 118/67 Pulse Oximetry 91 L Intake & Output 03/07/18 03/08/18 03/08/18 18:59 06:59 18:59 Intake Total 2250 / 2250 720 / 720 Output Total 450 / 450 0 / 0 Balance 1800 / 1800 720 / 720 Weight 55.9 kg Intake: IV 1000 / 1000 LR 1000 mL Inj 1,000 ML @ 63 1000 / 1000 mls/hr IV.CONT .[id number] [facility] Rx# :[id number] Oral 1250 / 1250 720 / 720 Output: Urine Amount (Catheter) 350 / 350 0 / 0 Female External 0 / 0 0 / 0 Indwelling Urethral Catheter 350 / 350 Gastric Drainage 100 / 100 Nasogastric Tube 100 / 100 Other: # Bowel Movements 0 0 Result Diagrams: 03/08/18 04:06 03/08/18 04:06 Objective Remarks: Gen: middle-aged female, lying in bed, no acute distress. HEENT: nc. at. perrl. mmm. Neck: No JVD. trachea midline. Chest/pulmonary: CTA bilaterally. equal chest rise. unlabored. Cardiovascular:normal rate, regular rhythm. sinus. GI/abdomen: Soft, appropriately tender to palpation diffusely. abdominal binder in place. bilateral groin sites with vac dressings. c/d/i. Extremities: well perfused. no edema. distal pulses 2+. Neuro: RASS 0. CAM - . GCS 15. follows commands. no focal deficits. Assessment and Plan - Assessment and Plan Plan: 67-year-old female with: Aortoiliac disease status post aortobifemoral bypass postop day 1 Acute blood loss anemia Hypotension- resolved History of brain aneurysm surgery Acute post-operative abdominal pain Plan: remain in ICU continue mivf Advance p.o. diet per vascular surgery NG tube has been removed on 03/07 Bailey catheter discontinued. 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 Strict intake output, monitor and replete electrodes, follow BUN/creatinine Pepcid/DVT prophylaxis with Lovenox when okay with vascular surgery. [facility] will sign off at this time. Patient will be transferred to see PCU for vascular surgery. Please call back if needed.
[2018-03-08] MEDS: Famotidine PF Inj 20 MG/2 ML Vial IV.PUSH SCH ×2 (09:32→21:40)
[2018-03-08] MEDS: Sodium Chloride 0.9% 2 ML Flush BID IV.FLUSH SCH ×2 (09:33→21:41)
[2018-03-08] MEDS: Phenytoin Sodium 100 MG Capsule PO SCH (09:33)
[2018-03-08] MEDS: Enoxaparin Inj 30 MG/0.3 ML Syringe SQ SCH (13:06)
[2018-03-09] MEDS: Famotidine PF Inj 20 MG/2 ML Vial IV.PUSH SCH (08:47)
[2018-03-09] MEDS: Sodium Chloride 0.9% 2 ML Flush BID IV.FLUSH SCH (08:47)
[2018-03-09] MEDS: Phenytoin Sodium 100 MG Capsule PO SCH (09:00)
--- NOTE | 2018-03-09 09:47 | P.PNVS ---
Subjective Post Op Day #: 4 Procedure: ABF with B groin reconstructions Subjective/Hospital Course: continues to look great feet warm overall still appropriately weak Objective Vital Signs / I&O: Vital Signs 03/08/18 10:00 03/08/18 11:00 03/08/18 12:00 Temperature Pulse Rate 100 H 98 H 91 H Respiratory Rate 33 H 24 23 Blood Pressure Pulse Oximetry 96 97 96 03/08/18 13:00 03/08/18 14:00 03/08/18 15:00 Temperature Pulse Rate 95 H 101 H 101 H Respiratory Rate 33 H 26 H 43 H Blood Pressure Pulse Oximetry 94 L 89 L 75 L 03/08/18 16:00 03/08/18 16:38 03/08/18 22:45 Temperature 98.7 F 98.9 F Pulse Rate 95 H 92 H 96 H Respiratory Rate 45 H 25 H 18 Blood Pressure 151/71 H 177/82 H Pulse Oximetry 98 97 100 03/08/18 22:52 03/08/18 23:00 03/08/18 23:38 Temperature 98.7 F Pulse Rate 93 H 93 H Respiratory Rate 18 18 Blood Pressure 166/74 H Pulse Oximetry 94 L 03/09/18 03:00 03/09/18 04:00 03/09/18 04:14 Temperature 98.8 F Pulse Rate 100 H 110 H Respiratory Rate 18 18 Blood Pressure 187/90 H Pulse Oximetry 93 L 03/09/18 04:21 03/09/18 07:00 Temperature Pulse Rate 96 H Respiratory Rate Blood Pressure 168/77 H Pulse Oximetry Intake & Output 03/08/18 03/09/18 03/09/18 18:59 06:59 18:59 Intake Total 960 / 960 1480 / 1480 Output Total 600 / 600 Balance 960 / 960 880 / 880 Weight 57 kg Intake: IV 1000 / 1000 Oral 960 / 960 480 / 480 Output: Urine 600 / 600 Other: # Voids 3 4 # Bowel Movements 0 0 Exam: sitting in chair palpable pedal pulses abdominal incision ok groin incisions with Prevena in place x 2 Assessment and Plan - Assessment (1) Aortic occlusion Code(s): I74.10 - Embolism and thrombosis of unspecified parts of aorta Status : Acute - Plan POD#4 s/p ABF with bilateral groin reconstructions palpable pulses 1. cardiac diet 2. OOB/PT 3. Resume home meds Discharge Plannin-3 days pending mobility
[2018-03-09] MEDS: Lisinopril 20 MG Tablet PO SCH (12:08)
[2018-03-09] MEDS: Enoxaparin Inj 30 MG/0.3 ML Syringe SQ SCH (12:08)
[2018-03-10] MEDS: Famotidine PF Inj 20 MG/2 ML Vial IV.PUSH SCH ×3 (00:26→20:40)
[2018-03-10] MEDS: Sodium Chloride 0.9% 2 ML Flush BID IV.FLUSH SCH ×3 (00:28→20:41)
--- NOTE | 2018-03-10 08:50 | P.PNVS ---
Subjective Post Op Day #: 5 Procedure: ABF with B groin reconstructions Subjective/Hospital Course: looks great bijal po; + flatus but no BM; no N/V weak but getting stronger Objective Vital Signs / I&O: Vital Signs 03/09/18 09:00 03/09/18 10:00 03/09/18 11:00 Temperature 98.6 F Pulse Rate 97 H 98 H 79 Respiratory Rate 18 Blood Pressure 168/72 H Pulse Oximetry 95 03/09/18 12:00 03/09/18 13:00 03/09/18 14:00 Temperature Pulse Rate 88 86 86 Respiratory Rate Blood Pressure Pulse Oximetry 03/09/18 15:00 03/09/18 16:00 03/09/18 17:00 Temperature 98.5 F Pulse Rate 90 86 86 Respiratory Rate 18 Blood Pressure 152/67 H Pulse Oximetry 95 03/09/18 18:00 03/09/18 19:00 03/09/18 20:00 Temperature 98.6 F Pulse Rate 88 96 H 87 Respiratory Rate 22 Blood Pressure 159/73 H Pulse Oximetry 97 03/09/18 21:00 03/09/18 22:00 03/09/18 23:00 Temperature 97.9 F Pulse Rate 91 H 93 H 99 H Respiratory Rate 22 Blood Pressure 172/79 H Pulse Oximetry 95 03/10/18 00:00 03/10/18 01:00 03/10/18 02:00 Temperature Pulse Rate 86 88 86 Respiratory Rate Blood Pressure Pulse Oximetry 03/10/18 03:00 03/10/18 04:00 03/10/18 05:00 Temperature 98.6 F Pulse Rate 98 H 91 H 89 Respiratory Rate 20 Blood Pressure 157/68 H Pulse Oximetry 96 03/10/18 06:00 03/10/18 07:00 Temperature Pulse Rate 98 H 95 H Respiratory Rate Blood Pressure Pulse Oximetry Intake & Output 03/09/18 03/10/18 03/10/18 18:59 06:59 18:59 Intake Total 1150 / 1150 400 / 400 Output Total 950 / 950 0 / 0 Balance 200 / 200 400 / 400 Weight 55 kg Intake: Oral 1150 / 1150 400 / 400 Output: Urine 950 / 950 Urine Amount (Catheter) 0 / 0 Female External 0 / 0 Other: # Voids 4 # Bowel Movements 0 0 Exam: comfortably feet swollen palpable pulses b Assessment and Plan - Assessment (1) Aortic occlusion Code(s): I74.10 - Embolism and thrombosis of unspecified parts of aorta Status : Acute - Plan POD#5 s/p ABF with bilateral groin reconstructions palpable pulses 1. cardiac diet 2. OOB/PT 3. Resume home meds Discharge Plannin-2 days pending mobility
[2018-03-10] MEDS: Lisinopril 20 MG Tablet PO SCH (08:59)
[2018-03-10] MEDS: Phenytoin Sodium 100 MG Capsule PO SCH (08:59)
[2018-03-10] MEDS: Enoxaparin Inj 30 MG/0.3 ML Syringe SQ SCH (12:03)
[2018-03-11] MEDS: Lisinopril 20 MG Tablet PO SCH (09:25)
[2018-03-11] MEDS: Phenytoin Sodium 100 MG Capsule PO SCH (09:26)
[2018-03-11] MEDS: Famotidine PF Inj 20 MG/2 ML Vial IV.PUSH SCH ×2 (09:26→21:57)
[2018-03-11] MEDS: Sodium Chloride 0.9% 2 ML Flush BID IV.FLUSH SCH ×2 (09:26→21:57)
--- NOTE | 2018-03-11 10:31 | P.PNVS ---
Subjective Post Op Day #: 6 Procedure: ABF with B groin reconstructions Subjective/Hospital Course: continues to look great ambulated c/o R anterior thigh numbness feet ok Objective Vital Signs / I&O: Vital Signs 03/10/18 11:00 03/10/18 12:00 03/10/18 13:00 Temperature 98.4 F Pulse Rate 79 88 86 Respiratory Rate 18 Blood Pressure 158/74 H Pulse Oximetry 96 03/10/18 14:00 03/10/18 15:00 03/10/18 16:00 Temperature 98.6 F Pulse Rate 90 88 88 Respiratory Rate 18 Blood Pressure 152/72 H Pulse Oximetry 95 03/10/18 17:00 03/10/18 18:00 03/10/18 19:00 Temperature 98 F Pulse Rate 86 86 91 H Respiratory Rate 19 Blood Pressure 169/78 H Pulse Oximetry 98 03/10/18 20:00 03/10/18 21:00 03/10/18 22:00 Temperature Pulse Rate 96 H 90 86 Respiratory Rate Blood Pressure Pulse Oximetry 03/10/18 23:00 03/11/18 00:00 03/11/18 00:50 Temperature 98.4 F Pulse Rate 110 H 96 H 106 H Respiratory Rate 20 Blood Pressure 204/84 H Pulse Oximetry 98 03/11/18 01:00 03/11/18 02:00 03/11/18 03:00 Temperature Pulse Rate 96 H 97 H 99 H Respiratory Rate Blood Pressure Pulse Oximetry 03/11/18 04:00 03/11/18 04:50 03/11/18 05:00 Temperature 98.4 F Pulse Rate 96 H 97 H 91 H Respiratory Rate 20 Blood Pressure 181/79 H Pulse Oximetry 98 03/11/18 06:00 03/11/18 07:00 Temperature 98.3 F Pulse Rate 111 H 97 H Respiratory Rate 20 Blood Pressure 202/91 H Pulse Oximetry 93 L Intake & Output 03/10/18 03/11/18 03/11/18 18:59 06:59 18:59 Intake Total 1025 / 1025 420 / 420 Output Total 900 / 900 600 / 600 Balance 125 / 125 -180 / -180 Weight 54.5 kg Intake: Oral 1025 / 1025 420 / 420 Output: Urine 900 / 900 600 / 600 Other: # Bowel Movements 0 Exam: sitting comfortably Prevena in place B groins abdominal incision ok palpable pedal pulses Assessment and Plan - Assessment (1) Aortic occlusion Code(s): I74.10 - Embolism and thrombosis of unspecified parts of aorta Status : Acute - Plan POD#6 s/p ABF with bilateral groin reconstructions palpable pulses 1. cardiac diet 2. OOB/PT 3. Resume home meds Discharge Planning: home Tues after Prevena removed
[2018-03-11] MEDS: Enoxaparin Inj 30 MG/0.3 ML Syringe SQ SCH (12:22)
[2018-03-12 03:44] VITALS: RESP 16
[2018-03-12 07:50] VITALS: BP 182/86; TEMP 97.5; O2SAT 96
[2018-03-12] MEDS: Phenytoin Sodium 100 MG Capsule PO SCH (09:04)
[2018-03-12] MEDS: Lisinopril 20 MG Tablet PO SCH (09:04)
--- NOTE | 2018-03-12 10:06 | P.PNVS ---
Subjective Post Op Day #: 7 Procedure: ABF with B groin reconstructions Subjective/Hospital Course: 67/F alert in NAD, Speech clear Pt in good spirits this am and continues to look great Pt ambulating B LE warm w/ motor intact B groin Prevena wound vacs removed Incisions intact w/o swelling or hematoma Pt c/o Mild R LE thigh numbness Pt denied abdominal pain or nausea Objective Vital Signs / I&O: Vital Signs 03/11/18 10:00 03/11/18 11:00 03/11/18 12:00 Temperature 98.5 F Pulse Rate 86 88 88 Respiratory Rate 20 Blood Pressure 175/92 H Pulse Oximetry 97 03/11/18 13:00 03/11/18 14:00 03/11/18 15:00 Temperature 98.3 F Pulse Rate 90 86 84 Respiratory Rate 20 Blood Pressure 152/70 H Pulse Oximetry 93 L 03/11/18 16:00 03/11/18 17:00 03/11/18 18:00 Temperature Pulse Rate 88 84 95 H Respiratory Rate Blood Pressure Pulse Oximetry 03/11/18 19:00 03/11/18 20:00 03/11/18 21:00 Temperature 99.0 F Pulse Rate 92 H 86 96 H Respiratory Rate 20 Blood Pressure 164/75 H Pulse Oximetry 95 03/11/18 22:00 03/11/18 23:00 03/12/18 00:00 Temperature 98.8 F Pulse Rate 94 H 100 H 96 H Respiratory Rate 18 Blood Pressure 164/77 H Pulse Oximetry 94 L 03/12/18 01:00 03/12/18 01:47 03/12/18 02:00 Temperature Pulse Rate 104 H 87 Respiratory Rate 16 Blood Pressure Pulse Oximetry 03/12/18 03:00 03/12/18 03:40 03/12/18 04:00 Temperature 98.8 F Pulse Rate 96 H 88 Respiratory Rate 18 16 Blood Pressure Pulse Oximetry 95 03/12/18 05:00 03/12/18 06:00 03/12/18 06:45 Temperature Pulse Rate 88 88 Respiratory Rate 4 L Blood Pressure Pulse Oximetry 03/12/18 07:00 Temperature 97.5 F L Pulse Rate 88 Respiratory Rate 16 Blood Pressure 182/86 H Pulse Oximetry 96 Intake & Output 03/11/18 03/12/18 03/12/18 18:59 06:59 18:59 Intake Total 480 / 480 720 / 720 Output Total 700 / 700 1000 / 1000 Balance -220 / -220 -280 / -280 Weight 54 kg Intake: Oral 480 / 480 720 / 720 Output: Urine 700 / 700 Urine Amount (Catheter) 1000 / 1000 Female External 1000 / 1000 Other: Date of Last Bowel Movement 03/05/18 # Bowel Movements 0 Exam: GENERAL: A&Ox3,NAD, Speech clear SKIN: Warm and dry Abdominal incision intact w/ slight bulge distal end of incision line/No erythema, swelling or drainage noted B groin incisions intact w/o swelling, hematoma or drainage HEAD: Normocephalic. EYES: No scleral icterus. No injection or drainage. NECK: Supple, trachea midline. No JVD or lymphadenopathy. CARDIOVASCULAR: Regular rate and rhythm without murmurs, gallops, or rubs. RESPIRATORY: Breath sounds equal bilaterally. No accessory muscle use. GASTROINTESTINAL: Abdomen soft, non-tender, nondistended. + flatulence/+ BS MUSCULOSKELETAL: No cyanosis, or edema. Palpable R/L DP 2+ Assessment and Plan - Assessment (1) Aortic occlusion Code(s): I74.10 - Embolism and thrombosis of unspecified parts of aorta Status : Acute - Plan POD#7 Pt s/p ABF with bilateral groin reconstructions Palpable distal pulses noted Plan Pt clear for d/c Arranged out pt f/u w/ a surveillance MARIA LUISA Discussed and reviewed post operative care and management Tita Ernst NP [email or web address] [phone] Discharge Planning: Today
--- NOTE | 2018-03-12 10:25 | P.DS ---
Discharge Summary - Admission Date 03/05/18 05:59 - Admission Diagnosis (1) Aortic occlusion - Discharge Date 03/12/18 - Discharge Diagnosis (1) Status post aortobifemoral bypass surgery Status: Acute (2) Aortic occlusion Status: Acute - Summary Brief History from admission: 67/F c/o bilateral lower extremity rest pain secondary to aortoiliac occlusive disease Procedure: ABF with B groin reconstructions Significant Findings: Incisions intact w/o hematoma or swelling Ab S/NT LE warm w/ motor intact Palpable strong distal pulses noted to B LE Hospital Course: 67/F c/o bilateral lower extremity rest pain secondary to aortoiliac occlusive disease Pt s/p aortobifem bypass with B groin reconstructions Pt tolerated procedure well Pt voiding, ambulating and eating well + Flatulence Pt w/o abdominal pain, back pain or nausea POD 7 wound vacs removed Pt clear for d/c with f/u in 2W E forcse reviewed- No recent activity- Rx pain medication for out patient pain management - Discharge Instructions Any questions or concerns: Call [facility] at [facility] [phone] Discharge Plan - Discharge Disposition Patient Disposition: 01 Discharge Home - Discharge Condition Condition: Good - Discharge Order Discharge Orders: Discharge Order (Routine); Ordered 03/12/18 Ordered By: Tita Ernst - Physicians Team Primary Care Provider: Primary Care Naomie Edge Attending Provider: Ran Reyes Other Providers: Angel Mahmood MD ; Sylvester Phan - Rxs /Orders / Referrals /Forms Prescriptions: New hydrocodone-acetaminophen [[place]] 10-325 mg Tablet 1 tab PO Q4-6H PRN (Reason: Pain) Qty: 20 RF: 0 nicotine [Nicoderm CQ] 14 mg/24 hr Patch 24 Hour 1 patch TRANSDERMAL Q24H PRN (Reason: Smoking cessation ) Qty: 30 RF: 0 Continue aspirin [Adult Low Dose Aspirin] 81 mg Tablet,Delayed Release (Dr/Ec) 81 mg PO DAILY lisinopril 20 mg Tablet 40 mg PO DAILY phenytoin sodium extended Capsule 400 mg PO EVERY OTHER DAY phenytoin sodium extended [Dilantin Extended] 100 mg Capsule 300 mg PO EVERY OTHER DAY rosuvastatin 20 mg Tablet 20 mg PO DAILY Referrals: Primary Care Naomie Edge [Primary Care Provider] - See Instructions Ran Reyes MD [Physician] - See Instructions (Your surveillance MARIA LUISA exam is scheduled on 03/28/18 @ 11:30 Your post op follow up is scheduled on 03/29/18 @ 09:00) - Discharge Instructions Patient Printed Instructions: How to Stop Smoking (GEN), Heart Healthy Diet ( GEN), Aortofemoral Bypass (DC), Peripheral Vascular Disease (GEN) - Post Discharge Care Plan Care Plan Goals: Discharge Care Plan Goals After Vascular Surgery Contact: Please call [phone] if you have any problems or have questions regarding your hospitalization. Directions to Meet Your Goals: 1. Diet: * You may resume a regular diet as you were eating at home before your admission. 2. Activity: * Increase your activity level gradually. * Keep surgical extremities elevated when at rest. This will help limit the swelling, bruising and discomfort normally present after surgery. * Walking is a good form of light exercise. Go for a walk at least 3 times per day. * No heavy lifting (lifting over 10 pounds) for at least 4 weeks from surgery. * Check with your surgeon to ensure when you are cleared for heavy lifting and full-intensity exercising. * Your strength will gradually improve. * No driving or operating motorized vehicles while on prescription pain medications. * No swimming until wounds fully healed. 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 3. Bathing: Shower daily. * Gently let soap and water run over your incision and pat dry. Do not scrub the incision/wound. * Don't soak in a bath or submerge your incision in water until your incision is healed and evaluated by your physician at follow-up (usually two weeks). 4. Wound Care: INCISION SITE CARE INSTRUCTIONS: * You may leave your incision open to air. * Keep your incision clean and dry, unless showering. See above. * Moisture near the incision will cause the wound to open. * No lotions, creams, ointments, or powders on incisions until they are well- healed. * If you have glue over the incision(s), allow it to fall off naturally in 1-3 weeks * If present, gabriela/sutures will be removed 2-3 weeks after surgery during your follow-up clinic visit. * If present, change dressing/bandage when soaked/soiled as needed. * Observe wound daily, checking for signs and symptoms of infection including: foul odor, drainage from the incision, increased redness, increased pain at incision, or increased swelling. 5. Pain Control: Expect post-operative pain for 1-4 weeks after surgery. Your pain will improve gradually. * You may have been provided with a prescription for pain medication. Please take as directed, and be aware of side effects such as drowsiness, constipation and mild stomach discomfort. Pain pills on an empty stomach can cause nausea , so eat a small amount of food, such as crackers, when taking these pills. * Take [id number] stool softeners (Colace or Senna) with your prescribed pain medication. * Acetaminophen (500mg every 6 hours) or Ibuprofen (400mg every 6 hours) may be used in conjunction with narcotics to relieve pain. DO NOT take more than 4 grams (4000mg) of Tylenol in one day, as this can harm your liver. DO NOT take ibuprofen IF: you have an allergy to non-steroidal anti-inflammatory medications, you are taking Coumadin, you have been told you have kidney problems, or you have a history of gastrointestinal bleeding or ulcers. DO NOT take more than 3.2 grams (3200mg) of ibuprofen in one day. * You may also find relief from using heat packs or pads or ice packs. 6. Bowel Regimen for Constipation: * People who undergo surgery are likely to develop post-operative constipation. Exposure to narcotics and changes in diet, fluid intake, and physical activity are known contributors to constipation. We recommend routine stool softeners and/ or laxatives after surgery for most patients. Start by taking one medication. You can increase as directed to relieve constipation. Stop taking these medications if you develop diarrhea. These medications are available over-the- counter and do not require a prescription: * Colace is a stool softener. We recommend starting at 100mg orally twice per day as needed for soft stools and increase to a maximum of 200mg twice daily as needed. * Senna is a laxative that works by keeping water in the intestine to help stool move along the intestinal tract. Take 1 tablet daily as needed for soft stool and increase to a maximum of 2 tablets twice daily as needed. Take Senna with two full glasses of water each time. * Miralax, Dulcolax and Milk of Magnesia are other qpjz-wgf-ezdezes laxatives that may be used as needed for post-operative constipation. * Drink 6-8 glasses of water per day. * Consume 15-30g of fiber per day: * Metamucil powder, 1-2 tablespoons 1-2 times/day OR Benefiber powder, 2 tablespoons 4 times/day. * Avoid straining. 7. Follow-Up: Do Not miss your follow-up appointment. Keep up with all your appointments and yearly check ups If you have any of the following symptoms please call [phone] immediately: Excessive swelling of the affected extremity Sudden onset of severe or unusual pain in the affected extremity Pain that gets worse or is not relieved by medication Warmth, redness, or swelling in the skin around the wound Foul drainage from incision Extensive bruising or discoloration Wound that opens up or pulls apart Fever above 101.5F or shaking chills Nausea or vomiting Severe diarrhea or severe constipation Dizziness or fainting Chest pain, shortness of breath, or increased work of breathing Weight gain >10 lbs over 3-4 days Inability to urinate for more than 6 hours Cloudy or foul smelling urine Urge to urinate more often than usual Symptoms to Report to Your Doctor: Temperature 101F or higher Pain uncontrolled by medication Drainage or foul odor from incision Extensive bruising or discoloration Chest pain Shortness of breath Nausea, vomiting or dizziness Call 911: Call 911 right away if you have: Sudden onset of chest pain that is not relieved by medications Shortness of breath
[2018-03-12 10:46] VITALS: PULSE 78
== END 2018-03-12 12:54 | disposition home or self-care (01) ==
LOC: HSDI 05:59 → HCVI 13:26 → N03 03-06 10:09 → HCPC 03-08 21:13
PROVIDERS: ADMIT Surgery; ATTEND Surgery
PROC: [UNRECOGNIZED PROCEDURE] (2018-03-05 08:02)